=== PATIENT | male | born 1945 | race Caucasian/White ===

== ENCOUNTER → 2018-08-14 | Outpatient (CLI) | payer MEDICARE ==
[~2018-08-14] MED LIST: CHOL40002 PO; CLON2TAB9 PO; CYAN25009 PO; GABA100C PO; HYDR2TAB29 PO; MULT-224 PO; Prevagen PO; TAMS-11 PO; VIT1TABL34 PO; [UNRECOGNIZED DRUG - OTHER] PO; [UNRECOGNIZED DRUG - OTHER] PO; [UNRECOGNIZED DRUG - OTHER] PO
[2018-08-14 15:47] LABS: BASOPHILS # (AUTO) 0.04 x10^3/uL (0-0.1); BASOPHILS % (AUTO) 0 % (0-1); EOSINOPHILS # (AUTO) 0.04 x10^3/uL (0-0.4); EOSINOPHILS % (AUTO) 0 % (1-7); LYMPHOCYTES # (AUTO) 1.36 x10^3/uL (1-3.4); LYMPHOCYTES % (AUTO) 13 % (22-44); MD NO; MEAN CORPUSCULAR HEMOGLOBIN 32.5 pg (27.5-34.5); MEAN CORPUSCULAR HGB CONC 33.8 g/dL (33.2-36.2); MEAN CORPUSCULAR VOLUME 96.3 fL (81-97); MEAN PLATELET VOLUME 7.5 fL (7.4-10.4); MONOCYTES # (AUTO) 0.69 x10^3/uL (0.2-0.8); MONOCYTES % (AUTO) 7 % (2-9); NEUTROPHILS # (AUTO) 8.43 x10^3/uL (1.8-6.8); NEUTROPHILS % (AUTO) 80 % (42-75); PLATELET COUNT 284 x10^3/uL (130-400); RED BLOOD COUNT 4.08 x10^6/uL (4.38-5.82); RED CELL DISTRIBUTION WIDTH 12.2 % (9.4-14.8)
[2018-08-14 15:59] LABS: ALANINE AMINOTRANSFERASE 42 U/L (12-78); ALBUMIN 3.1 g/dL (3.4-5.0); ANION GAP 1 mmol/L (5-15); CALCIUM 8.7 mg/dL (8.5-10.1); CHLORIDE 105 mmol/L (98-107); CREATININE 0.85 mg/dL (0.7-1.3); INTERNATIONAL NORMALIZED RATIO 1.08 (0.93-1.1); PROTHROMBIN TIME 11.4 Seconds (9.6-11.5)
[2018-08-14 16:01] LABS: ALKALINE PHOSPHATASE 111 U/L (45-117); BILIRUBIN,TOTAL 0.4 mg/dL (0.2-1.0); TOTAL PROTEIN 6.9 g/dL (6.4-8.2)
== END | disposition home or self-care (01) ==
LOC: STAR 14:44
PROVIDERS: ATTEND Neurological Surgery
DX: Z01.818 Encounter for other preprocedural examination (principal); M48.062 Spinal stenosis, lumbar region with neurogenic claudication
CPT/HCPCS: 36415; 71046; 80053; 85025; 85610; 85730; 93005

== ENCOUNTER 2018-08-24 11:01 | Inpatient (IN) | payer MEDICARE ==
[2018-08-14 15:17] VITALS: BP 125/81
[~2018-08-24] VITALS: Ht 180.3 cm; Wt 84.2 kg
[~2018-08-24 11:01] MED LIST changes: +BACITRACIN 50,000 UNIT ONE; +BUPIVACAINE/PF-EPI 0.5% 1:200K ONE; -MULT-224 PO; +MULT-642 PO; +THROMBIN 5,000 UNIT VIAL TP ONE
[2018-08-24] MEDS ORDERED: LACTATED RINGERS 1,000 ML IV SCH (11:37)
[2018-08-24] MEDS ORDERED: MIDAZOLAM 1 MG/ML, 2ML ONE (12:42)
[2018-08-24] MEDS ORDERED: FENTANYL PF 250 MCG/5ML ONE (12:42)
[2018-08-24] MEDS ORDERED: DEXAMETHASONE 4 MG/ML, 1ML ONE (13:52)
[2018-08-24] MEDS ORDERED: CEFAZOLIN 1,000 MG ONE ×2 (13:53)
[2018-08-24] MEDS ORDERED: HYDROmorphone 2 MG/ML, 1ML IVPush PRN (14:30)
[2018-08-24] MEDS ORDERED: LABETALOL 5MG/ML, 20ML IV PRN (14:30)
[2018-08-24] MEDS ORDERED: ONDANSETRON 2MG/ML, 2ML IV PRN ×2 (14:30→17:30)
[2018-08-24] MEDS ORDERED: DIAZEPAM 5 MG/ML, 2ML IVPush PRN (14:30)
[2018-08-24] MEDS ORDERED: MEPERIDINE/PF 25MG/0.5ML IVPush PRN (14:30)
[2018-08-24] MEDS ORDERED: FENTANYL PF 100 MCG/2ML IV PRN (14:30)
[2018-08-24] MEDS ORDERED: OXYcodone 5 MG/5 ML ORAL.SOL UDC PO PRN (14:30)
[2018-08-24] MEDS ORDERED: PROMETHAZINE 25 MG/ML, 1ML IV PRN (14:30)
[2018-08-24] MEDS ORDERED: hydrALAzine 20 MG/ML, 1ML IV PRN (14:30)
[2018-08-24] MEDS ORDERED: ACETAMINOPHEN 325 MG TABLET PO PRN (14:30)
[2018-08-24] MEDS ORDERED: ROCURONIUM 10MG/ML,5ML ONE (15:00)
[2018-08-24] MEDS ORDERED: PROPOFOL 10 MG/ML, 20ML ONE (15:00)
[2018-08-24] MEDS ORDERED: NEOSTIGMINE 1 MG/ML, 10ML ONE (15:01)
[2018-08-24] MEDS ORDERED: GLYCOPYRROLATE 0.4 MG/2 ML, 2ML ONE (15:02)
[2018-08-24] MEDS ORDERED: OXYcodone 5 MG/5 ML ORAL.SOL UDC ONE (15:28)
[2018-08-24] MEDS ORDERED: HYDROmorphone 2 MG/ML, 1ML ONE (15:28)
[2018-08-24] MEDS ORDERED: CYCLOBENZAPRINE 10 MG TABLET ONE (15:44)
[2018-08-24] MEDS ORDERED: CYCLOBENZAPRINE 10 MG TABLET PO PRN (16:00)
[2018-08-24] MEDS ORDERED: HYDROmorphone PCA 30 MG/30 ML IV PRN ×2 (16:00)
[2018-08-24] MEDS ORDERED: MAGNESIUM HYDROXIDE 8%, 30ML UDC PO PRN (17:30)
[2018-08-24] MEDS ORDERED: PROMETHAZINE 25 MG/ML, 1ML IM PRN (17:30)
[2018-08-24] MEDS ORDERED: DIPHENHYDRAMINE 50 MG/ML, 1ML IVPush PRN (17:30)
[2018-08-24] MEDS ORDERED: BISACODYL 10 MG SUPP PR PRN (17:30)
[2018-08-24] MEDS ORDERED: OXYcodone/APAP 5/325MG TABLET PO PRN (17:30)
[2018-08-24] MEDS ORDERED: HYDROmorphone 2 MG/ML, 1ML IM PRN (17:30)
[2018-08-24] MEDS ORDERED: HYDROmorphone 4MG TABLET PO PRN (18:30)
[2018-08-24 18:45] VITALS: BP 137/81
[2018-08-24] MEDS ORDERED: CEFAZOLIN PMX 1GM/50ML 50 ML IVPB SCH (20:00)
[2018-08-24] MEDS: CEFAZOLIN PMX 1GM/50ML 50 ML IVPB SCH (22:00)
[2018-08-24] MEDS: GABAPENTIN 400 MG CAPSULE PO SCH (22:02)
[2018-08-25 00:04] VITALS: BP 127/73
[2018-08-25] MEDS: NS + 20MEQ KCL 1,000 ML IV SCH ×2 (04:16→16:30)
[2018-08-25] MEDS: GABAPENTIN 400 MG CAPSULE PO SCH ×4 (05:35→20:51)
[2018-08-25] MEDS: CEFAZOLIN PMX 1GM/50ML 50 ML IVPB SCH (05:36)
[2018-08-25] MEDS: SENNA/DOCUSATE TABLET PO SCH (08:23)
[2018-08-25] MEDS: TAMSULOSIN 0.4 MG CAP.ER.24H PO SCH (08:23)
[2018-08-25 09:09] VITALS: BP 133/73
[2018-08-25] MEDS ORDERED: TIZA4TAB9 PO (10:31)
[2018-08-25 15:09] VITALS: BP 106/70
[2018-08-25] MEDS: HYDROmorphone 2MG TABLET PO PRN (19:44)
[2018-08-25 20:00] VITALS: BP 119/66
[2018-08-26] MEDS: HYDROmorphone 2MG TABLET PO PRN ×3 (00:47→18:40)
[2018-08-26 01:00] VITALS: BP 124/72
[2018-08-26] MEDS: NS + 20MEQ KCL 1,000 ML IV SCH ×3 (02:06→21:06)
[2018-08-26] MEDS: GABAPENTIN 400 MG CAPSULE PO SCH ×5 (06:19→21:06)
[2018-08-26 07:47] VITALS: BP 152/83
[2018-08-26] MEDS: CYCLOBENZAPRINE 10 MG TABLET PO PRN ×2 (08:50→18:40)
[2018-08-26] MEDS: TAMSULOSIN 0.4 MG CAP.ER.24H PO SCH (08:50)
[2018-08-26] MEDS: SENNA/DOCUSATE TABLET PO SCH (08:55)
[2018-08-26 13:05] VITALS: BP 115/70
[2018-08-26 18:20] VITALS: BP 127/77
[2018-08-27 01:16] VITALS: BP 121/63
[2018-08-27] MEDS: GABAPENTIN 400 MG CAPSULE PO SCH ×5 (05:34→20:14)
[2018-08-27] MEDS: HYDROmorphone 2MG TABLET PO PRN ×2 (05:34→11:11)
[2018-08-27] MEDS: CYCLOBENZAPRINE 10 MG TABLET PO PRN ×2 (05:34→16:22)
[2018-08-27] MEDS: SENNA/DOCUSATE TABLET PO SCH (07:20)
[2018-08-27] MEDS: TAMSULOSIN 0.4 MG CAP.ER.24H PO SCH (07:20)
[2018-08-27 07:54] VITALS: BP 123/80
[2018-08-27 13:25] VITALS: BP 104/64
[2018-08-27] MEDS: NS + 20MEQ KCL 1,000 ML IV SCH (16:23)
[2018-08-27 19:19] VITALS: BP 112/73
[2018-08-28] MEDS: NS + 20MEQ KCL 1,000 ML IV SCH (01:25)
[2018-08-28 02:14] VITALS: BP 124/80
[2018-08-28] MEDS: HYDROmorphone 2MG TABLET PO PRN ×2 (03:44→11:21)
[2018-08-28] MEDS: GABAPENTIN 400 MG CAPSULE PO SCH ×2 (05:21→08:36)
[2018-08-28] MEDS: CYCLOBENZAPRINE 10 MG TABLET PO PRN (05:46)
[2018-08-28 07:12] VITALS: BP 115/68
[2018-08-28] MEDS: TAMSULOSIN 0.4 MG CAP.ER.24H PO SCH (08:36)
[2018-08-28] MEDS: SENNA/DOCUSATE TABLET PO SCH (08:36)
== END 2018-08-28 13:10 | disposition home or self-care (01) | DRG 517 ==
LOC: OUT 11:01 → 4NOR 16:41 → OUT 17:14 → DCLOUNGE 08-28 12:53
PROVIDERS: ADMIT Neurological Surgery; ATTEND Neurological Surgery
PROC: 01NB0ZZ Release Lumbar Nerve, Open Approach (ICD-10-PCS; principal; 2018-08-24 14:00)
DX: M48.062 Spinal stenosis, lumbar region with neurogenic claudication (principal); M48.07 Spinal stenosis, lumbosacral region; R33.9 Retention of urine, unspecified
CPT/HCPCS: 72100; G0378; J0690; J1100; J1170; J2250; J2704; J2710; J3010; J3480; J7120

== ENCOUNTER 2018-08-29 17:41 | Inpatient (IN) | payer MEDICARE ==
[~2018-08-29] VITALS: Ht 180.3 cm; Wt 81.5 kg
[~2018-08-29 17:41] MED LIST changes: -BACITRACIN 50,000 UNIT ONE; -BUPIVACAINE/PF-EPI 0.5% 1:200K ONE; -THROMBIN 5,000 UNIT VIAL TP ONE; +TIZA4TAB9 PO
--- NOTE | 2018-08-29 18:05 | NUR ---
Pt presents to ED with c/o urinary retention and dysuria. States issues with urination since LBP surgery 5 days ago. States during hospital stay he felt distended and was having issues emptying his bladder. Mild amount of distress and discomfort noted. Breathing regular and unlabored. Pt with bladder scan of 200mL. POC discussed. Pt going to attempt to get urine sample. Pt hot to touch. Febrile in triage.
[2018-08-29 18:10] LABS: MD YES; MEAN CORPUSCULAR HEMOGLOBIN 31.6 pg (27.5-34.5); MEAN CORPUSCULAR HGB CONC 33.6 g/dL (33.2-36.2); MEAN CORPUSCULAR VOLUME 94.2 fL (81-97); MEAN PLATELET VOLUME 7.8 fL (7.4-10.4); PLATELET COUNT 338 x10^3/uL (130-400); RED BLOOD COUNT 4.34 x10^6/uL (4.38-5.82); RED CELL DISTRIBUTION WIDTH 12.5 % (9.4-14.8)
[2018-08-29 18:20] LABS: ALANINE AMINOTRANSFERASE 63 U/L (12-78); ALBUMIN 2.7 g/dL (3.4-5.0); ANION GAP 5 mmol/L (5-15); CALCIUM 8.3 mg/dL (8.5-10.1); CHLORIDE 104 mmol/L (98-107); CREATININE 0.92 mg/dL (0.7-1.3)
[2018-08-29 18:23] LABS: ALKALINE PHOSPHATASE 142 U/L (45-117); BILIRUBIN,TOTAL 0.3 mg/dL (0.2-1.0); TOTAL PROTEIN 6.6 g/dL (6.4-8.2)
--- NOTE | 2018-08-29 18:25 | NUR ---
No everett placement per ERMD. ERMD aware of pt's urine. Pt to be admitted per ERMD.
[2018-08-29] MEDS ORDERED: ACETAMINOPHEN 325 MG TABLET PO ONE (18:30)
[2018-08-29 18:37] LABS: MONOS% (MANUAL) 6 % (2-9); SEGS% (MANUAL) 84 % (42-75)
[2018-08-29 18:38] LABS: <PLATELET ESTIMATE> ADEQUATE; LYMPH#(MANUAL) 1.06 x10^3/uL (1-3.4); LYMPHS% (MANUAL) 8 % (22-44); REACTIVE LYMPHS # (MANUAL) 0.27 x10^3/uL (0-0); REACTIVE LYMPHS % (MANUAL) 2 % (0-0); SEG#(MANUAL) 11.31 x10^3/uL (1.8-6.8)
[2018-08-29 18:40] LABS: <RBC MORPHOLOGY> NORMAL; LARGE PLATELETS 1+; SMUDGE CELLS 1+
[2018-08-29] MEDS ORDERED: ACETAMINOPHEN 325 MG TABLET ONE (18:44)
[2018-08-29 18:45] LABS: CULTURE INDICATED? YES; MICROSCOPIC INDICATED
--- NOTE | 2018-08-29 18:50 | NUR ---
Pt medicated per oct. 5 rights verified prior. 3 p's addressed.
--- NOTE | 2018-08-29 18:58 | NUR ---
Report to KIRAN Decker.
[2018-08-29] MEDS ORDERED: CEFTRIAXONE 1,000 MG in SODIUM CHLORIDE 0.9% 50 ML IVPB ONE (19:00)
[2018-08-29] MEDS ORDERED: SODIUM CHLORIDE FLUSH 10ML SYR IVF ONE (19:00)
[2018-08-29] MEDS ORDERED: CEFTRIAXONE PMX 1GM/50ML 50 ML ONE (19:26)
[2018-08-29] MEDS ORDERED: SODIUM CHLORIDE FLUSH 10ML SYR IVF PRN (19:30)
[2018-08-29] MEDS ORDERED: PLEASE ENTER HEIGHT AND WEIGHT MC SCH (19:30)
[2018-08-29] MEDS ORDERED: SODIUM CHLORIDE 0.9% 1,000 ML IV SCH (20:05)
[2018-08-29] MEDS ORDERED: PROMETHAZINE 25 MG/ML, 1ML IM PRN (20:30)
[2018-08-29] MEDS ORDERED: ACETAMINOPHEN 325 MG TABLET PO PRN (20:30)
[2018-08-29] MEDS ORDERED: BISACODYL 10 MG SUPP PR PRN (20:30)
[2018-08-29] MEDS ORDERED: HYDROcodone/APAP 5/325 TABLET PO PRN (20:30)
[2018-08-29] MEDS ORDERED: TIZANIDINE 4MG TABLET PO PRN (20:30)
[2018-08-29] MEDS ORDERED: CEFTRIAXONE PMX 1GM/50ML 50 ML IV ONE (20:30)
[2018-08-29] MEDS ORDERED: HYDROmorphone 2 MG/ML, 1ML IVPush PRN (20:30)
[2018-08-29] MEDS ORDERED: ONDANSETRON 2MG/ML, 2ML IVPush PRN (20:30)
[2018-08-29] MEDS ORDERED: hydrALAzine 20 MG/ML, 1ML IVPush PRN (20:30)
[2018-08-29] MEDS ORDERED: ONDANSETRON ODT 4 MG PO PRN (20:30)
[2018-08-29] MEDS ORDERED: POLYETHYLENE GLYCOL 17 GM PACKET PO PRN (20:30)
[2018-08-29 20:35] LABS: FREE T4 (FREE THYROXINE) 1.08 ng/dL (0.76-1.46); THYROID STIMULATING HORMONE 2.13 mIU/L (0.358-3.740)
[2018-08-29 20:48] LABS: HEMOGLOBIN A1C 5.8 % (4.2-6.3)
[2018-08-29 20:50] VITALS: BP 108/65
[2018-08-29] MEDS: GABAPENTIN 400 MG CAPSULE PO SCH (23:00)
[2018-08-30 02:14] VITALS: BP 135/75
[2018-08-30 07:33] VITALS: BP 105/65
[2018-08-30 07:49] LABS: BASOPHILS # (AUTO) 0.01 x10^3/uL (0-0.1); BASOPHILS % (AUTO) 0 % (0-1); EOSINOPHILS # (AUTO) 0.05 x10^3/uL (0-0.4); EOSINOPHILS % (AUTO) 1 % (1-7); LYMPHOCYTES # (AUTO) 0.92 x10^3/uL (1-3.4); LYMPHOCYTES % (AUTO) 9 % (22-44); MD NO; MEAN CORPUSCULAR HEMOGLOBIN 31.2 pg (27.5-34.5); MEAN CORPUSCULAR HGB CONC 33.3 g/dL (33.2-36.2); MEAN CORPUSCULAR VOLUME 93.8 fL (81-97); MEAN PLATELET VOLUME 8.1 fL (7.4-10.4); MONOCYTES # (AUTO) 0.68 x10^3/uL (0.2-0.8); MONOCYTES % (AUTO) 6 % (2-9); NEUTROPHILS # (AUTO) 9.22 x10^3/uL (1.8-6.8); NEUTROPHILS % (AUTO) 85 % (42-75); PLATELET COUNT 263 x10^3/uL (130-400); RED BLOOD COUNT 4.02 x10^6/uL (4.38-5.82); RED CELL DISTRIBUTION WIDTH 12.3 % (9.4-14.8)
[2018-08-30 07:56] LABS: ALANINE AMINOTRANSFERASE 53 U/L (12-78); ALBUMIN 2.6 g/dL (3.4-5.0); ANION GAP 6 mmol/L (5-15); CALCIUM 8.7 mg/dL (8.5-10.1); CHLORIDE 104 mmol/L (98-107); CHOLESTEROL, TOTAL 117 mg/dL (140-239); CREATININE 0.65 mg/dL (0.7-1.3); TRIGLYCERIDES 53 mg/dL (50-200); VLDL CHOLESTEROL 11 mg/dL (0-25)
[2018-08-30 07:58] LABS: ALKALINE PHOSPHATASE 128 U/L (45-117); BILIRUBIN,TOTAL 0.5 mg/dL (0.2-1.0); CHOL/HDL RATIO 2.6; HDL CHOL % 38 % (26-37); HDL CHOLESTEROL (DIRECT) 45 mg/dL (40-60); LDL CHOLESTEROL,CALCULATED 61 mg/dL (54-169); LDL/HDL RATIO 1.4 (0.5-3.0); TOTAL PROTEIN 6.1 g/dL (6.4-8.2)
[2018-08-30] MEDS: FINASTERIDE 5 MG TABLET PO SCH (08:29)
[2018-08-30] MEDS: SENNA/DOCUSATE TABLET PO SCH (08:30)
[2018-08-30] MEDS: GABAPENTIN 400 MG CAPSULE PO SCH ×4 (08:30→22:05)
[2018-08-30] MEDS: TAMSULOSIN 0.4 MG CAP.ER.24H PO SCH (08:30)
[2018-08-30 13:48] VITALS: BP 125/75
[2018-08-30] MEDS ORDERED: CEFTRIAXONE PMX 2GM/50ML 50 ML IV SCH (18:00)
[2018-08-30 21:29] VITALS: BP 135/78
[2018-08-31 03:23] VITALS: BP 153/89
[2018-08-31 06:10] LABS: BASOPHILS # (AUTO) 0.02 x10^3/uL (0-0.1); BASOPHILS % (AUTO) 0 % (0-1); EOSINOPHILS # (AUTO) 0.05 x10^3/uL (0-0.4); EOSINOPHILS % (AUTO) 1 % (1-7); LYMPHOCYTES # (AUTO) 0.84 x10^3/uL (1-3.4); LYMPHOCYTES % (AUTO) 10 % (22-44); MD NO; MEAN CORPUSCULAR HGB CONC 34.1 g/dL (33.2-36.2); MEAN CORPUSCULAR VOLUME 93.8 fL (81-97); MONOCYTES # (AUTO) 0.59 x10^3/uL (0.2-0.8); MONOCYTES % (AUTO) 7 % (2-9); NEUTROPHILS # (AUTO) 6.59 x10^3/uL (1.8-6.8); NEUTROPHILS % (AUTO) 82 % (42-75); PLATELET COUNT 244 x10^3/uL (130-400); RED BLOOD COUNT 4.02 x10^6/uL (4.38-5.82); RED CELL DISTRIBUTION WIDTH 12.4 % (9.4-14.8)
[2018-08-31 06:11] LABS: ANION GAP 7 mmol/L (5-15); CALCIUM 8.5 mg/dL (8.5-10.1); CHLORIDE 106 mmol/L (98-107); CREATININE 0.64 mg/dL (0.7-1.3)
[2018-08-31] MEDS: GABAPENTIN 400 MG CAPSULE PO SCH ×2 (06:25→10:23)
[2018-08-31 07:20] VITALS: BP 139/79
[2018-08-31] MEDS ORDERED: CEFD300C37 PO (09:23)
[2018-08-31] MEDS: FINASTERIDE 5 MG TABLET PO SCH (10:23)
[2018-08-31] MEDS: SENNA/DOCUSATE TABLET PO SCH (10:23)
[2018-08-31] MEDS: TAMSULOSIN 0.4 MG CAP.ER.24H PO SCH (10:23)
[2018-08-31 11:45] VITALS: BP 118/73
== END 2018-08-31 12:05 | disposition home or self-care (01) | DRG 871 ==
LOC: ED 18:24 → EDIP 19:13 → 4NOR 21:58 → DCLOUNGE 08-31 11:50
PROVIDERS: ADMIT Internal Medicine; ATTEND Internal Medicine
DX: A41.9 Sepsis, unspecified organism (principal); E43 Unspecified severe protein-calorie malnutrition; N39.0 Urinary tract infection, site not specified; N40.0 Benign prostatic hyperplasia without lower urinary tract symptoms; Z91.81 History of falling; Z96.642 Presence of left artificial hip joint; G89.29 Other chronic pain
CPT/HCPCS: 36415; 80048; 80053; 80061; 81001; 83036; 83605; 83735; 84145; 84439; 84443; 85025; 87040; 87077; 87086; 87186; G0378; J0696; J7030